=== PATIENT | female | born 2000 | race Two or more races ===

== ENCOUNTER 2020-05-30 14:04 | Outpatient (RCR) | payer OTHER, SELFPAY ==
[2020-05-30] MEDS: COVID-19 VACC, MRNA(PFIZER)/PF 30 MCG/0.3 ML SYRINGE IM (11:22)
[2020-06-20] MEDS: COVID-19 VACC, MRNA(PFIZER)/PF 30 MCG/0.3 ML SYRINGE IM (11:12)
== END 2020-05-30 23:59 ==
LOC: IMMUN 14:04
PROVIDERS: Visit Provider Family Medicine
DX: Z23 Encounter for immunization (principal)
CPT/HCPCS: 0001A; 0002A; 91300